=== PATIENT | female | born 1980 | race Caucasian/White ===

== ENCOUNTER 2017-02-17 10:36 | Emergency (ER) | payer BC, MEDICAID ==
[2017-02-17 10:46] VITALS: BP 136/93
[2017-02-17] MEDS ORDERED: Amoxicillin PO (*) 250 MG CAP PO ONE (13:26)
[2017-02-17] MEDS ORDERED: Ketorolac INJ* 60 MG/2 ML VIAL IM ONE (13:26)
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
== END 2017-02-17 13:51 | disposition home or self-care (01) ==
LOC: ED 10:36
DX: K04.7 Periapical abscess without sinus (principal); S02.5XXA Fracture of tooth (traumatic), initial encounter for closed fracture; F32.9 Major depressive disorder, single episode, unspecified; F41.9 Anxiety disorder, unspecified; K21.9 Gastro-esophageal reflux disease without esophagitis; F17.210 Nicotine dependence, cigarettes, uncomplicated; X58.XXXA Exposure to other specified factors, initial encounter; Y92.9 Unspecified place or not applicable
CPT/HCPCS: 96372; 99282; A9270-GY; J1885

== ENCOUNTER 2017-10-13 13:35 | Emergency (ER) | payer BC, OTHER ==
[2017-10-13 14:56] LABS: ABS Basophils 0.1 10^3/ul (0-0.2); ABS Eosinophils 0.1 10^3/ul (0-0.6); ABS Lymphocytes 3.5 10^3/ul (1.0-4.8); ABS Monocytes 0.8 10^3/ul (0-0.8); ABS Neutrophils 6.9 10^3/ul (1.5-7.7); ABS Nucleated RBC 0 10^3/ul; Hematocrit 40 % (35-47); Hemoglobin 13.6 g/dl (12.0-16.0); Lymphocyte % 30.7 % (25-47); Mean Corpuscular HGB Conc 34 g/dl (31-36); Mean Corpuscular Hemoglobin 29 pg (27-31); Mean Corpuscular Volume 86 fL (80-97); Mean Platelet Volume 7.2 um3 (7.4-10.4); Nucleated Red Blood Cells % 0.1; Platelet Count 444 10^3/ul (150-450); Red Blood Count 4.67 10^6/ul (4.0-5.4); Red Cell Distribution Width 14 % (10.5-15); White Blood Count 11.3 10^3/ul (3.5-10.8)
[2017-10-13 15:03] LABS: INR 1.03 (0.77-1.02)
[2017-10-13 15:12] LABS: EGFR Non-African American 68.2 (>60)
[2017-10-13] MEDS ORDERED: Iohexol 300* (CONTRAST) 10 ML SDV IV ONE (15:28)
[2017-10-13] MEDS ORDERED: Ondansetron ODT TAB* 4 MG PO ONE (15:33)
[2017-10-13] MEDS ORDERED: Morphine VIAL* 4 MG/ML VIAL (1 ml vial) IV ONE (15:33)
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
[2017-10-13 17:54] VITALS: BP 130/85
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
== END 2017-10-13 17:50 | disposition home or self-care (01) ==
LOC: ED 13:35
DX: S20.219A Contusion of unspecified front wall of thorax, initial encounter (principal); V43.52XA Car driver injured in collision with other type car in traffic accident, initial encounter; Y92.410 Unspecified street and highway as the place of occurrence of the external cause; M54.2 Cervicalgia; Z88.5 Allergy status to narcotic agent; F17.210 Nicotine dependence, cigarettes, uncomplicated; K21.9 Gastro-esophageal reflux disease without esophagitis; Z79.899 Other long term (current) drug therapy
CPT/HCPCS: 36415; 71260; 72125; 74177; 80053; 83605; 85025; 85610; 86850; 86900; 86901; 93005; 96374; 99282; A9270-GY; J2270; Q9967

== ENCOUNTER → 2018-09-05 13:38 | Emergency (ER) | payer SELFPAY ==
[~2018-09-05 13:38] MED LIST: Nicotine PATCH 21 MG/24 HR* PATCH TRANSDERM ONE
--- NOTE | 2018-09-05 14:11 | ED ---
Complex/Multi-Sys Presentation - HPI Summary HPI Summary: 38 year old F brought in by ambulance to [facility] complains of anxiety attack, pain across her shoulder blades, and back pain since today. The patient rates the pain 8/10 in severity. Symptoms aggravated by nothing. Symptoms alleviated by nothing. Patient is hyperventilating. Patient has skin bruises and scratches on her bilateral arms from moving boxes this week. Patient denies suicidal ideation. Patient has hx anxiety attacks, anxiety, depression. She denies hx bipolar disorder, schizophrenia. - History Of Current Complaint Chief Complaint: EDPsychosocial Time Seen by Provider: 09/05/18 13:53 Hx Obtained From: Patient Onset/Duration: Lasting Hours, Still Present Timing: Constant Severity Currently: Moderate Aggravating Factor(s): Nothing Alleviating Factor(s): Nothing Associated Signs And Symptoms: Positive: Other - Patient is hyperventilating. Patient has skin bruises and scratches on her bilateral arms from moving boxes this week; NEGATIVE: suicidal ideation - Allergies/Home Medications Allergies/Adverse Reactions: Allergies Allergy/AdvReac Type Severity Reaction Status Date / Time acetaminophen Allergy Swelling Verified 09/05/18 14:29 carisoprodol [From Soma] Allergy Nausea Verified 09/05/18 14:29 hydrocodone [From Vicodin] Allergy Rash Verified 09/05/18 14:29 morphine Allergy Fatigue Verified 09/05/18 14:29 pregabalin [From Lyrica] Allergy Altered Verified 09/05/18 14:29 Mental Status tapentadol [From Nucynta] Allergy Altered Verified 09/05/18 14:29 Mental Status PMH/Surg Hx/FS Hx/Imm Hx Previously Healthy: No GI History: Reports: Hx Gastroesophageal Reflux Disease, Hx Ulcer Psychiatric History: Reports: Hx Anxiety, Hx Depression - Cancer History Cancer Type, Location and Year: colon - Surgical History Surgery Procedure, Year, and Place: c-sections x 2. tubal ligation. colon cancer with resection Infectious Disease History: No Infectious Disease History: Denies: Traveled Outside the [place] in Last 30 Days - Family History Known Family History: Positive: Other - anxiety, depression, bipolar disorder - Social History Alcohol Use: None Hx Substance Use: No Substance Use Type: Reports: None Hx Tobacco Use: Yes Smoking Status (MU): Light Every Day Tobacco Smoker Review of Systems Positive: Other - pain across shoulder blades, back pain Positive: Other - skin bruises and scratches on bilateral arms Positive: Other - anxiety attack, hyperventilating; NEGATIVE: suicidal ideation All Other Systems Reviewed And Are Negative: Yes Physical Exam - Summary Physical Exam Summary: Appearance: Well appearing, no pain distress Skin: rash on right forearm Head/face: normal Eyes: EOMI, GORDO ENT: normal Neck: supple, non-tender Respiratory: CTA, breath sounds present Cardiovascular: RRR, pulses symmetrical Abdomen: non-tender, soft Musculoskeletal: normal, strength/ROM intact Neuro: normal, sensory motor intact, A&Ox3 Psych: The patient is anxious Triage Information Reviewed: Yes Vital Signs On Initial Exam: Initial Vitals Temp Pulse Resp BP Pulse Ox 99.2 F 121 24 151/115 99 09/05/18 13:43 09/05/18 13:43 09/05/18 13:43 09/05/18 13:43 09/05/18 13:43 Vital Signs Reviewed: Yes Diagnostics - Vital Signs Vital Signs Temp Pulse Resp BP Pulse Ox 09/05/18 13:43 99.2 F 121 24 151/115 99 - Laboratory Result Diagrams: 09/05/18 14:07 09/05/18 14:07 Lab Statement: Any lab studies that have been ordered have been reviewed, and results considered in the medical decision making process. - Radiology CXR Radiology Interpretation Completed By: Radiologist Summary of Radiographic Findings: NO ACTIVE CARDIOPULMONARY DISEASE. ED physician has reviewed this report. Complex Multi-Symp Course/Dx Course Of Treatment: 38 year old F brought in by ambulance to [facility] complains of anxiety attack, pain across her shoulder blades, and back pain since today. Patient has skin bruises and scratches on her bilateral arms from moving boxes this week. Bloodwork/UA obtained. CXR showed NO ACTIVE CARDIOPULMONARY DISEASE. Patient spoke with social group worker Olivia Fletcher. Mental health adjunct faculty instructor Eamon reports that patient refuses psychiatric treatment. Eamon spoke with with psychiatrist, who agrees that symptoms are probably d/t substance abuse. Patient admitted to ER staff that she snorted Ritalin today. Patient is refusing further treatment. Patient will be discharged home with and follow up from primary care provider in 3 days. Patient was instructed to return to ED for new or worsening symptoms. Patient understands and is agreeable to discharge plan. - Diagnoses Differential Diagnoses/HQI/PQRI: Other - substance abuse/anxeity reaction Provider Diagnoses: Anxiety, Substance abuse Discharge - Sign-Out/Discharge Documenting (check all that apply): Patient Departure - Discharge Patient Received Moderate/Deep Sedation with Procedure: No - Discharge Plan Condition: Stable Disposition: HOME Patient Education Materials: Polysubstance Abuse (ED), Anxiety (ED) Referrals: Jose BOYER,Ilay Matute [Primary Care Provider] - 3 Days Additional Instructions: Follow up with your primary care provider in 3 days. RETURN TO EMERGENCY DEPARTMENT FOR NEW OR WORSENING SYMPTOMS. - Billing Disposition and Condition Condition: STABLE Disposition: Home - Attestation Statements Document Initiated by Scribe: Yes Documenting Scribe: Kimberly Alfaro Provider For Whom Scribe is Documenting (Include Credential): John Castillo MD Scribe Attestation: Kimberly Brewer, scribed for John Castillo MD on 09/05/18 at 1653. Scribe Documentation Reviewed: Yes Provider Attestation: The documentation as recorded by the Kimberly mc accurately reflects the service I personally performed and the decisions made by John elmore MD Status of Scribe Document: Viewed
[2018-09-05 14:17] LABS: ABS Basophils 0.1 10^3/ul (0-0.2); ABS Eosinophils 0.1 10^3/ul (0-0.6); ABS Lymphocytes 2.9 10^3/ul (1.0-4.8); ABS Monocytes 0.8 10^3/ul (0-0.8); ABS Neutrophils 5.8 10^3/ul (1.5-7.7); ABS Nucleated RBC 0 10^3/ul; Eosinophil % 0.5 %; Hematocrit 35 % (33-41); Hemoglobin 11.9 g/dL (12.0-16.0); Lymphocyte % 30.4 %; Mean Corpuscular HGB Conc 34 g/dL (31-36); Mean Corpuscular Hemoglobin 28 pg (27-31); Mean Corpuscular Volume 84 fL (80-97); Nucleated Red Blood Cells % 0.1; Platelet Count 436 10^3/uL (150-450); Red Blood Count 4.23 10^6 /uL (3.70-4.87); Red Cell Distribution Width 16 % (10.5-15); White Blood Count 9.7 10^3/uL (3.5-10.8)
[2018-09-05 14:45] LABS: HCG Pregnancy < 0.60 mIU/mL
[2018-09-05 14:52] LABS: ALT 13 U/L (7-52); AST 17 U/L (13-39); Albumin 4.5 g/dL (3.2-5.2); Albumin/Globulin Ratio 1.4 (1-3); Alkaline Phosphatase 59 U/L (34-104); Anion Gap 8 mmol/L (2-11); BUN/Creatinine Ratio 10.8 (8-20); Blood Urea Nitrogen 10 mg/dL (6-24); CO2 Carbon Dioxide 26 mmol/L (22-32); Calcium 9.6 mg/dL (8.6-10.3); Chloride 105 mmol/L (101-111); EGFR African American 82.1 (>60); EGFR Non-African American 67.8 (>60); Globulin 3.3 g/dL (2-4); Glucose 104 mg/dL (70-100); Potassium 3.9 mmol/L (3.5-5.0); Sodium 139 mmol/L (135-145); Total Protein 7.8 g/dL (6.4-8.9)
[2018-09-05 15:54] LABS: Acetaminophen < 15 mcg/mL; Alcohol < 10 mg/dL (<10); Salicylate < 2.50 mg/dL (<30)
[2018-09-05 16:09] LABS: TSH (Thyroid Stimulating Horm) 1.05 mcIU/mL (0.34-5.60)
[2018-09-05 16:56] VITALS: BP 143/117
== END | disposition home or self-care (01) ==
LOC: MERGE 13:38 → ED 13:38
DX: F41.9 Anxiety disorder, unspecified (principal); F19.10 Other psychoactive substance abuse, uncomplicated; K21.9 Gastro-esophageal reflux disease without esophagitis; F17.210 Nicotine dependence, cigarettes, uncomplicated; Z88.6 Allergy status to analgesic agent; Z88.5 Allergy status to narcotic agent; Z88.8 Allergy status to other drugs, medicaments and biological substances
CPT/HCPCS: 36415; 71046; 80053; 80320; 80329; 84443; 84702; 85025; 85379; 99283; A9270-GY; G0480